=== PATIENT | female | born 2005 | race Caucasian/White ===

== ENCOUNTER 2023-09-21 06:02 | Emergency (ER) | payer BC ==
[~2023-09-21] VITALS: Ht 157.5 cm; Wt 47.7 kg
[~2023-09-21 06:02] MED LIST: AMOXICILLIN 8751 TAB PO; FLEXERIL 1010 MG/TAB PO
[2023-09-21 06:26] VITALS: BP 113/68; TEMP 98.1
[2023-09-21] MEDS ORDERED: diphenhydrAMINE 25 MG CAP PO ONE (06:45)
[2023-09-21] MEDS ORDERED: Acetaminophen 500 MG TAB PO ONE (06:45)
[2023-09-21] MEDS ORDERED: Metoclopramide 10 MG TAB PO ONE (06:45)
[2023-09-21] MEDS ORDERED: REGLAN 10MG10 MG/TAB PO (07:44)
[2023-09-21 08:30] VITALS: PULSE 80
== END 2023-09-21 08:30 | disposition home or self-care (01) ==
LOC: COL.ER 06:02
DX: R51.9 Headache, unspecified (principal)

== ENCOUNTER 2023-11-05 21:54 | Emergency (ER) | payer BC ==
[~2023-11-05] VITALS: Ht 157.5 cm; Wt 45.5 kg
[~2023-11-05 21:54] MED LIST changes: +REGLAN 10MG10 MG/TAB PO
[2023-11-05 22:38] LABS: COLLECTION METHOD CLEAN CATCH
[2023-11-05 22:44] LABS: BASO % 0.2 % (0.0-2.0); EOS # 0.1 K/mm3 (0.0-0.7); EOS % 1.3 % (0.0-4.0); GRAN # 2.9 K/mm3 (1.4-6.5); GRAN % 45.2 % (42.2-75.2); HEMOGLOBIN 11.9 g/dl (12.0-15.0); LYMPH # 2.7 K/mm3 (1.2-3.4); LYMPH % 42.3 % (20.0-51.0); MEAN CELL VOLUME 87 fl (80.0-95.0); MEAN CORPUSCULAR HEMOGLOBIN 30 pg (26-32); MEAN CORPUSCULAR HGB CONC 34 g/dl (33.0-37.0); MEAN PLATELET VOLUME 9.4 fl (7.4-10.4); MONO # 0.7 K/mm3 (0.1-0.6); MONO % 10.8 % (1.7-9.3); PLATELET COUNT 258 K/mm3 (130-400); RED BLOOD COUNT 4.01 M/mm3 (4.10-5.30); REDCELL DISTRIBUTION WIDTH-CV 12.8 % (11.5-14.5); URINE APPEARANCE CLEAR (CLEAR/HAZY); URINE BLOOD NEGATIVE (NEGATIVE); URINE COLOR YELLOW (YELLOW); URINE GLUCOSE NEGATIVE (NEGATIVE); URINE KETONE NEGATIVE (NEGATIVE); URINE NITRATE NEGATIVE (NEGATIVE); URINE PROTEIN(semi-quant) NEGATIVE (NEGATIVE); URINE UROBILINOGEN 0.2 E.U/dL (0.2-1.0)
[2023-11-05 22:45] LABS: HEMATOCRIT 34.9 % (35.0-45.0)
[2023-11-06] MEDS ORDERED: Rho(D) Imm Globulin 1,500 UNITS (300 MCG)/2 ML SYRINGE IV\\IM SCH (01:28)
[2023-11-06 02:04] VITALS: BP 90/71; PULSE 85; TEMP 98.6
== END 2023-11-06 02:04 | disposition home or self-care (01) ==
LOC: COL.ER 21:54
PROVIDERS: Physician Assistant
DX: O20.0 Threatened abortion (principal); Z3A.01 Less than 8 weeks gestation of pregnancy
CPT/HCPCS: J2791

== ENCOUNTER 2023-11-07 17:48 | Emergency (ER) | payer BC ==
[~2023-11-07] VITALS: Ht 157.5 cm; Wt 45.5 kg
[2023-11-07 18:13] VITALS: TEMP 98.4
[2023-11-07 18:42] VITALS: BP 118/69; PULSE 77
== END 2023-11-07 18:45 | disposition home or self-care (01) ==
LOC: COL.ER 17:48
DX: O20.9 Hemorrhage in early pregnancy, unspecified (principal); Z3A.01 Less than 8 weeks gestation of pregnancy

== ENCOUNTER 2024-03-05 15:19 | Emergency (ER) | payer BC, MEDICAID ==
[~2024-03-05] VITALS: Ht 157.5 cm; Wt 49.1 kg
[2024-03-05 15:25] VITALS: TEMP 98.1
[2024-03-05 15:49] LABS: BASO % 0.1 % (0.0-2.0); EOS # 0.1 K/mm3 (0.0-0.7); EOS % 0.9 % (0.0-4.0); GRAN # 8.2 K/mm3 (1.4-6.5); GRAN % 74.2 % (42.2-75.2); HEMOGLOBIN 10.3 g/dl (12.5-16.0); LYMPH # 2.1 K/mm3 (1.2-3.4); LYMPH % 18.8 % (20.0-51.0); MEAN CELL VOLUME 89 fl (80.0-100.0); MEAN CORPUSCULAR HEMOGLOBIN 31 pg (27-31); MEAN CORPUSCULAR HGB CONC 34 g/dl (33.0-37.0); MEAN PLATELET VOLUME 9.2 fl (7.4-10.4); MONO # 0.6 K/mm3 (0.1-0.6); MONO % 5.2 % (1.7-9.3); PLATELET COUNT 280 K/mm3 (130-400); RED BLOOD COUNT 3.38 M/mm3 (4.10-5.30); REDCELL DISTRIBUTION WIDTH-CV 14.2 % (11.5-14.5)
[2024-03-05 15:50] LABS: HEMATOCRIT 30.2 % (37.0-47.0)
[2024-03-05 15:55] LABS: COLLECTION METHOD CLEAN CATCH
[2024-03-05 16:03] LABS: PH 7.5 (5.0-8.5); URINE APPEARANCE TURBID (CLEAR/HAZY); URINE BLOOD NEGATIVE (NEGATIVE); URINE COLOR YELLOW (YELLOW); URINE GLUCOSE NEGATIVE (NEGATIVE); URINE KETONE NEGATIVE (NEGATIVE); URINE NITRATE NEGATIVE (NEGATIVE); URINE PROTEIN(semi-quant) NEGATIVE (NEGATIVE); URINE UROBILINOGEN 0.2 E.U/dL (0.2-1.0)
[2024-03-05 16:07] LABS: ALBUMIN 3.8 g/dL (3.5-5.0); BILIRUBIN,TOTAL 0.2 mg/dL (0.2-1.2); CALCIUM 9.3 mg/dL (8.4-10.2); CREATININE, serum 0.64 mg/dL (0.57-1.11); POTASSIUM 3.6 mEq/L (3.5-4.5); TOTAL PROTEIN 6.9 g/dl (6.2-8.1)
[2024-03-05 16:13] LABS: AMORPHOUS CRYSTAL PRESENT (NOT PRESENT); URINE BACTERIA MODERATE /hpf (NONE SEEN); URINE RBC 0-2 /hpf (0-2)
[2024-03-05 16:46] VITALS: BP 112/53; PULSE 92
== END 2024-03-05 17:02 | disposition home or self-care (01) ==
LOC: COL.ER 15:19
PROVIDERS: Family Medicine
DX: O26.892 Other specified pregnancy related conditions, second trimester (principal); R04.0 Epistaxis; Z3A.16 16 weeks gestation of pregnancy